=== PATIENT | female | born 1960 | race Caucasian/White ===

== ENCOUNTER → 2017-02-02 | Outpatient (CLI) | payer OTHER | LOC: FIMAGING 11:40 | PROVIDERS: ATTEND Family Medicine | DX: Z12.31 Encounter for screening mammogram for malignant neoplasm of breast (principal) | CPT/HCPCS: G0202 ==

== ENCOUNTER → 2017-02-10 | Outpatient (CLI) | payer OTHER | LOC: FIMAGING 12:06 | PROVIDERS: ATTEND Family Medicine | DX: Z12.39 Encounter for other screening for malignant neoplasm of breast (principal); R92.8 Other abnormal and inconclusive findings on diagnostic imaging of breast | CPT/HCPCS: G0206 ==

== ENCOUNTER 2017-05-22 03:03 | Emergency (ER) | payer OTHER ==
[2017-05-22 03:42] VITALS: RESP 18
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
[2017-05-22] MEDS ORDERED: OXYCODONE/APAP 5/325 TAB PO ONE (04:51)
[2017-05-22] MEDS ORDERED: OXYCODONE/APAP 5/325MG PREPACK#4 BTL TAKEHOME ONE (06:33)
[2017-05-22 06:56] VITALS: BP 126/79; PULSE 73; TEMP 98.1; O2SAT 96
== END 2017-05-22 06:57 | disposition home or self-care (01) ==
DX: S82.142A Displaced bicondylar fracture of left tibia, initial encounter for closed fracture (principal); V00.328A Other snow-ski accident, initial encounter; Y92.830 Public park as the place of occurrence of the external cause; Y93.23 Activity, snow (alpine) (downhill) skiing, snowboarding, sledding, tobogganing and snow tubing

== ENCOUNTER 2017-06-04 08:50 | Inpatient (IN) | payer OTHER ==
[2017-06-04] MEDS ORDERED: ceFAZolin 2 GM/SWFI 2 GM/20 ML SYR IVP ONE (10:40)
[2017-06-04] MEDS ORDERED: LR 1,000 ML IV ONE (11:00)
[2017-06-04] MEDS ORDERED: BUPIVACAINE/EPI 0.5% 30 ML SDV ONE (11:50)
[2017-06-04] MEDS ORDERED: MIDAZOLAM 2 MG/2 ML VIAL IVP ONE (12:23)
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
[2017-06-04] MEDS ORDERED: fentaNYL 100 MCG/2 ML INJ ONE ×2 (12:47→16:19)
[2017-06-04] MEDS ORDERED: PROPOFOL/EMULSION 500 MG/50 ML BOTTLE IV ONE ×2 (12:48→14:11)
[2017-06-04] MEDS ORDERED: ONDANSETRON 4 MG/2 ML VIAL ONE (12:48)
[2017-06-04] MEDS ORDERED: DEXAMETHASONE 4 MG/ML VIAL ONE (12:48)
[2017-06-04] MEDS ORDERED: PHENYLEPHRINE HCL 100 MCG/ML SYR ONE (13:14)
[2017-06-04] MEDS ORDERED: PROPOFOL 200 MG/20 ML VIAL ONE ×2 (15:20→15:51)
[2017-06-04] MEDS ORDERED: KETOROLAC 30 MG/1 ML SDV ONE (15:41)
[2017-06-04] MEDS ORDERED: ONDANSETRON DISINTEGRATING 4 MG TAB PO PRN (16:13)
[2017-06-04] MEDS ORDERED: ONDANSETRON 4 MG/2 ML VIAL IVP PRN ×2 (16:13→16:15)
[2017-06-04] MEDS ORDERED: HYDROCODONE/APAP 5/325 TAB PO PRN (16:15)
[2017-06-04] MEDS ORDERED: OXYCODONE/APAP 5/325 TAB PO PRN (16:15)
[2017-06-04] MEDS ORDERED: ACETAMINOPHEN 500 MG TAB PO PRN (16:15)
[2017-06-04] MEDS ORDERED: NALOXONE HCL 0.4 MG/ML INJ IVP PRN ×2 (16:15→16:31)
[2017-06-04] MEDS ORDERED: HYDROmorphONE/DILAUDID 1 MG/ML INJ IVP PRN (16:15)
[2017-06-04] MEDS ORDERED: LR 500 ML IV PRN (16:15)
[2017-06-04] MEDS ORDERED: DIAZEPAM 10 MG/2 ML SYR IVP PRN (16:15)
[2017-06-04] MEDS ORDERED: PROMETHAZINE HCL 25 MG/ML INJ IVP PRN (16:15)
--- NOTE | 2017-06-04 16:16 | POSTANESTH ---
Post Anesthetic Evaluation Cardiovascular Status: Normal, Stable Respiratory Status: Normal, Stable Level of Consciousness/Mental Status: Can Participate in Eval Pain Control: Inadeq, Add Tx Required Nausea/Vomiting Control: Adequate, Prn Tx Ordered Complications Possibly Related to Anesthesia: None Noted
[2017-06-04] MEDS: fentaNYL 100 MCG/2 ML INJ IVP PRN ×2 (16:20→16:25)
[2017-06-04] MEDS ORDERED: HYDROmorphONE/DILAUDID 1 MG/ML INJ ONE (16:30)
[2017-06-04] MEDS ORDERED: D5W 1/2 NS W/ 20 KCl/L 1,000 ML IV SCH (16:30)
[2017-06-04] MEDS ORDERED: diphenhydrAMINE 25 MG CAP PO PRN (16:31)
[2017-06-04] MEDS ORDERED: HYDROmorphONE/DILAUDID 6 MG/30 ML PCA IV PRN (16:31)
--- NOTE | 2017-06-04 16:40 | POSTOPPROG ---
Post Op Note Date of Operation: 06/04/17 Surgeon: Anton Gauthier Food Preparation Worker: Blanka Yusuf PA-C Anesthesia: GET(General Endotracheal) Pre-op Diagnosis: Right lateral tibia plateau fracture Post-op Diagnosis: status post Right lateral tibia plateau fracture Indication: Unstable fracture Procedure: ORIF Right lateral tibia plateau fracture, lateral meniscus repair Findings: see dictated operative note Inf/Abcess present in the surg proc area at time of surgery?: No EBL: 100-500 (150cc) Complications: none Specimen(s): none
[2017-06-04] MEDS ORDERED: WARFARIN SODIUM 5 MG TAB PO ONE (18:00)
[2017-06-04] MEDS: OXYCODONE/APAP 5/325 TAB PO PRN ×2 (19:45→23:03)
[2017-06-04] MEDS: ceFAZolin 2 GM/DEXTROSE 100 ML IV SCH (22:29)
--- NOTE | 2017-06-05 02:28 | GOP ---
[f rep st] OPERATIVE REPORT DATE OF OPERATION: 06/04/2017 SURGEON: Anton Gauthier MD GLUING PRESSMAN: Blanka Yusuf PA-C. ANESTHESIA: Spinal. PREOPERATIVE DIAGNOSIS: 1. Comminuted bicondylar tibial plateau fracture. 2. Tibial shaft fracture. 3. Lateral meniscus tear. POSTOPERATIVE DIAGNOSIS: 1. Comminuted bicondylar tibial plateau fracture. 2. Tibial shaft fracture. 3. Lateral meniscus tear. PROCEDURE PERFORMED: 1. Open reduction, internal fixation, right comminuted bicondylar tibial plateau fracture with long extension into tibial shaft. 2. Lateral meniscus repair. FINDINGS: DESCRIPTION OF PROCEDURE: The patient was taken to the operating room, administered spinal anesthesi a, placed in the supine position with her leg in a leg sharif. The right lower extremity was prepped and draped in normal sterile fashion. Esmarch exam was performed followed by elevation of thigh cuf f to 275 mmHg pressure. A hockey stick incision was made along the lateral aspect of the patella ext ending distally approximately 6 cm beyond the tibial tubercle. This was carried through dermal and s ubcutaneous tissues. The lateral retinaculum was incised. The lateral joint line was opened. The f at pad was partially excised and reflected. The lateral meniscus was found to be completely torn ant eriorly and reflected into the joint. The joint line was completely depressed approximately 2-3 inch es with the articular surface well below its normal position. There were multiple small fragments. The smaller fragments were elevated. The large fragment was di simpacted using a Kevin elevator to eventually pry it loose from the metaphyseal region. This was the n lightly punched up with the punch, and then secured intra-articularly with 2 K-wires. The lateral fragment was then brought over the larger impacted fragment and secured with another K-wire. We init ially tried a CARMEN plate, but elected to go with a standard longer lateral tibial plate. These were Synthes plates. They were passed down through a pocket made in the lateral side of the tibia underne ath the anterior tibialis. The plate was then secured with pins proximally at the joint line. Intra operative radiographs showed our alignment was appropriate. The plate was secured distally with 3.5 cortical screws. The plate was secured proximally with three 4-0 locking screws in the subchondral b one and 1 kickstand screw that we placed so that we could obtain purchase of the posterior medial fra gment. We assessed our positioning under fluoroscopy. The screws proximally were 66, 70 and 72 mm i n length. The screws distally were 32, 30 and 28 mm in length. There was 1 middle screw that was ap proximately 32 mm in length. Thorough lavage performed with normal saline. The 3-0 sutures placed previously in the meniscus were then tied down to the lateral meniscal capsular ligaments and to the holes in the plate. This broug ht the meniscus into anatomic anterior position. The patella tracked reasonably well after the later al retinaculum was repaired. There was no obvious mechanical grinding within the joint. The subcuta neous tissues were closed with a 2-0 Vicryl suture followed by closure of the dermis with oswaldo. A 10-Eritrean drain was hooked up and the patient was placed into a sterile compression dressing that wa s lightly applied. A hinged knee brace was then applied. She tolerated the procedure well and was t ransferred back to recovery in stable condition. No operative complications. COMPLICATIONS: None. /[id number]/MODL
[2017-06-05] MEDS: OXYCODONE/APAP 5/325 TAB PO PRN ×4 (03:06→15:30)
[2017-06-05 05:10] LABS: INR 1.2 (0.83-1.16); PROTIME(PATIENT) 15.4 SEC (12.0-15.0)
[2017-06-05] MEDS: ceFAZolin 2 GM/DEXTROSE 100 ML IV SCH (06:20)
[2017-06-05 07:27] VITALS: RESP 16
--- NOTE | 2017-06-05 08:26 | SOAPPROG ---
[facility] Progress Note Assessment/Plan: Assessment: Plan: Objective: Vital Signs Temp Pulse Resp BP Pulse Ox 37.4 C 82 16 115/70 96 06/05/17 07:25 06/05/17 07:25 06/05/17 07:25 06/05/17 07:25 06/05/17 07:25 Laboratory Results 06/04/17 16:16 06/04/17 16:16 06/04/17 06/05/17 06/06/17 05:59 05:59 05:59 Intake Total 1900 Output Total 1930 Balance -30 PT 15.4 SEC (12.0-15.0) H 06/05/17 04:39 INR 1.20 (0.83-1.16) H 06/05/17 04:39
--- NOTE | 2017-06-05 09:17 | SOAPPROG ---
SOAP Progress Note Assessment/Plan: Assessment: POD #1 s/p right tibia ORIF: overall patient doing well, pain well controlled, has been NWB and ambulating with use of walker. Has passed flatus. Plan: Continue PT/OT for ROM: NWB and use of assistive device. Dressing: clean and dry, no abnormal bleeding/oozing/discharge noted. Drain in place: please maintain until prior to D/C. Advised patient to keep dressing dry and to watch for abnormal bleeding/oozing/discharge, change in heat/color around wound sites upon D/C and to seek immediate medical attention if seen. Brace: maintain locked in 20 degree of flexion. DVT prophylaxis: continue Coumadin and monitoring of PT/INR. Continue ROSALINA stockings and SCDs. Additionally, patient advised to watch for cough, congestion, chest pain, SOB, dyspnea, claudication, change in heat/color of extremity and to seek immediate medical attention if seen. D/C: Likely will D/C this afternoon pending progress, we will pull her drain prior to D/C. Patient advised to watch for aforementioned symptoms and additionally worsening abnormal numbness/tingling, change in ROM or strength and to seek immediate medical attention if seen. Questions/concerns can call our office at [phone] Patient discussed and agreed upon with Dr. Gauthier. Plan: 06/05/17 09:11 06/05/17 09:21 Subjective: Patient alert and able to respond appropriately to questions. Alone in room. No acute distress. States has been ambulating with walker and continues to have increased ambulation while maintaining NWB status to the right extremity. Has passed flatus but not yet had BM; states she is taking prunes and would like to continue with that course at this time. Denies in lower extremities worsening pain, abnormal numbness/tingling, change in ROM or strength, change in heat/ color of extremities. Additionally, denies cough, congestion, chest pain, SOB, dyspnea, claudication, cough. Objective: Vital Signs Temp Pulse Resp BP Pulse Ox 37.4 C 82 16 115/70 96 06/05/17 07:25 06/05/17 07:25 06/05/17 07:25 06/05/17 07:25 06/05/17 07:25 Laboratory Results 06/04/17 16:16 06/04/17 16:16 06/04/17 06/05/17 06/06/17 05:59 05:59 05:59 Intake Total 1900 Output Total 1930 Balance -30 PT 15.4 SEC (12.0-15.0) H 06/05/17 04:39 INR 1.20 (0.83-1.16) H 06/05/17 04:39 Intake and Output 06/04/17 06/05/17 06/05/17 17:59 05:59 17:59 Intake Total 1900 300 Output Total 900 1030 600 Balance 1000 -1030 -300 Weight 150 lb Intake: Oral (ml) 0 300 IV Intake (ml) 1900 Output: Urine (ml) 700 1000 600 Bedside Commode 600 Catheter 700 1000 Estimated Blood Loss (ml) 150 AYDEN Drain Output (ml) 50 30 Right Leg Saulo Howell 50 30 Other: Intake Quantity Yes Sufficient Output Comment Catheter pt was bladder scanned at zero mls at 0300. Catheter was dc'd at this time Alert and oriented, able to respond appropriately to questions. NAD. HEENT: KAREN , EOMs intact, moist buccal mucosa, patent nares, hearing intact. CV: Non- labored breathing, no diaphoresis. Calves soft/supple and NTTP b/l with brisk cap refill present b/l. MS: Right knee bandaged with AYDEN drain in place. No abnormal bleeding/oozing/ discharge, change in heat/color around wound sites or of extremities noted. Calves soft/supple and NTTP b/l with brisk cap refill b/l. NVI b/l with gross sensation intact b/l and no focal deficits. Passive dorsiflexion/ plantarflexion of right foot digit 1 produces no great pain in lower compartments of her right lower extremity. Laboratory Results 06/04/17 16:16 06/04/17 16:16 06/05/17 04:39 PT 15.4 SEC H SEC (12.0-15.0) INR 1.20 H (0.83-1.16) ICD10 Worksheet Patient Problems: Problems Problem Status Onset Tibial plateau fracture, right Acute - ICD10 Problem Qualifiers (1) Tibial plateau fracture, right Qualifiers: Encounter type: subsequent encounter Fracture type: closed Fracture healing: with routine healing Qualified Code(s): S82.141D - Displaced bicondylar fracture of right tibia, subsequent encounter for closed fracture with routine healing
[2017-06-05 11:44] VITALS: BP 122/62; PULSE 84; TEMP 98.2; O2SAT 95
[2017-06-05] MEDS ORDERED: WARFARIN SODIUM 5 MG TAB PO ONE (16:00)
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
== END 2017-06-05 16:36 | disposition home or self-care (01) | DRG 489 ==
LOC: OBSVTOIN 10:32 → F3N 10:32 → PREINTOOBSV 17:07 → F3N 17:36
PROVIDERS: ADMIT Orthopaedic Surgery Sports Medicine; ATTEND Orthopaedic Surgery Sports Medicine
PROC: 0QSG04Z Reposition Right Tibia with Internal Fixation Device, Open Approach (ICD-10-PCS; principal; 2017-06-04 12:30)
PROC: 0SQC0ZZ Repair Right Knee Joint, Open Approach (ICD-10-PCS; principal; 2017-06-04 12:30)
DX: S82.141A Displaced bicondylar fracture of right tibia, initial encounter for closed fracture (principal); S82.251A Displaced comminuted fracture of shaft of right tibia, initial encounter for closed fracture; S83.271A Complex tear of lateral meniscus, current injury, right knee, initial encounter; V00.321A Fall from snow-skis, initial encounter; Y93.23 Activity, snow (alpine) (downhill) skiing, snowboarding, sledding, tobogganing and snow tubing; Y92.838 Other recreation area as the place of occurrence of the external cause; Y99.8 Other external cause status; I73.00 Raynaud's syndrome without gangrene; G47.33 Obstructive sleep apnea (adult) (pediatric); G25.81 Restless legs syndrome
CPT/HCPCS: 97161-GP; 97166-GO; 97530-GP; C1713; C1762; J0690; J1100; J1170; J1885; J2250; J2370; J2405; J2704; J3010

== ENCOUNTER → 2018-03-05 | Outpatient (CLI) | payer OTHER | LOC: FIMAGING 11:08 | DX: Z12.31 Encounter for screening mammogram for malignant neoplasm of breast (principal) ==

== ENCOUNTER → 2018-08-01 | Outpatient (CLI) | payer OTHER | LOC: FIMAGING 08:57 | PROVIDERS: ATTEND Physician Assistant | DX: S82.141D Displaced bicondylar fracture of right tibia, subsequent encounter for closed fracture with routine healing (principal); M94.8X8 Other specified disorders of cartilage, other site; M25.461 Effusion, right knee ==